=== PATIENT | male | born 1940 | race Two or more races ===

== ENCOUNTER 2020-06-20 08:32 | Outpatient (CLI) | payer OTHER ==
[2020-06-22] MEDS ORDERED: SIMVASTATIN5 MG PO (11:15)
[2020-06-22] MEDS ORDERED: ADULT LOW DOSE81 M1 PO (11:16)
[2020-06-22] MEDS ORDERED: PLAVIX75 MG PO (11:16)
[2020-06-22] MEDS ORDERED: LISINOP PO (11:16)
[2020-06-22] MEDS ORDERED: ROPINIROLE HCL2 M1 PO (11:17)
== END 2020-06-20 09:01 | disposition home or self-care (01) ==
LOC: LAB 08:32
PROVIDERS: ATTEND Specialist
DX: I10 Essential (primary) hypertension (principal); K40.90 Unilateral inguinal hernia, without obstruction or gangrene, not specified as recurrent

== ENCOUNTER 2020-06-28 05:48 | Day surgery (SDC) | payer OTHER ==
[~2020-06-28 05:48] MED LIST: ADULT LOW DOSE81 M1 PO; LISINOP PO; PLAVIX75 MG PO; ROPINIROLE HCL2 M1 PO; SIMVASTATIN5 MG PO
== END 2020-06-28 21:35 | disposition home or self-care (01) ==
LOC: CIR.AMB 05:48
PROVIDERS: ATTEND Specialist
DX: K40.90 Unilateral inguinal hernia, without obstruction or gangrene, not specified as recurrent (principal); Z20.822 Contact with and (suspected) exposure to COVID-19